=== PATIENT | female | born 1990 | race Caucasian/White ===

== ENCOUNTER 2017-07-03 03:01 | Emergency (ER) | payer BC ==
[2017-07-03] MEDS: IBUPROFEN 600 MG TABLET. PO (04:35)
[2017-07-03] MEDS: HYDROcodone/APAP 5/325MG 1 TAB TABLET PO (04:35)
== END 2017-07-03 04:38 | disposition home or self-care (01) ==
LOC: ER 03:01
DX: S86.911A Strain of unspecified muscle(s) and tendon(s) at lower leg level, right leg, initial encounter (principal); Z88.5 Allergy status to narcotic agent; X58.XXXA Exposure to other specified factors, initial encounter; Y93.89 Activity, other specified; Y92.89 Other specified places as the place of occurrence of the external cause; Y99.8 Other external cause status
CPT/HCPCS: 29505; 73562; 99284